=== PATIENT | male | born 1950 | race Caucasian/White ===

== ENCOUNTER 2018-03-26 05:58 | Day surgery (SDC) | payer MEDICARE, OTHER, SELFPAY ==
[2018-03-26 06:24] VITALS: BP 126/73; PULSE 65; RESP 16; TEMP 37.1; O2SAT 96; BMI 23.4
[2018-03-26] MEDS: Oxymetazoline 0.05% 1 SPRAY SPRAY.BTL 15 SPRAY (07:38)
--- NOTE | 2018-03-26 07:41 | PCM.OPRPT ---
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 He has suffered cholesteatoma in the contralateral side and given the progression of the retraction and risk for development of similar disease on this side T-type tympanostomy tube placement was offered in the hopes of arresting further retraction of the tympanic membrane into the middle ear space and he was eager to proceed. The risks, alternatives, potential benefits, and complications were discussed at length and any questions answered to the patient and/or caregiver's satisfaction. Witnessed informed consent was obtained in the office, and the patient and/or caregiver was agreeable to proceed. Procedure went as follows: The patient was identified in the preoperative holding and brought to the operating room, and placed under general anesthesia. When appropriate anesthesia was obtained, the operative microscope was brought into the field and on the left side the external auditory canal and tympanic membrane visualized. This is noted to be deeply retracted. A myringotomy was then placed in the anteroinferior portion the tympanic membrane and Russell T-tube placed followed by oxymetazoline drops. The patient was then returned to anesthesia, revived and returned to recovery without complication. Type of Anesthesia:: MAC Anesthesiologist: Bernardo Montes Special Medications: none Specimen's removed: none Estimated Blood Loss (mL): none Fluids Replaced: none - Complications none - Admit VTE Documentation VTE Present on Admission: No VTE Mechan Device Prophylaxis: None VTE Pharm Prophylaxis ordered?: No
[2018-03-26 07:44] VITALS: BP 126/73; BP 141/76; PULSE 75; RESP 14; TEMP 36.8; O2SAT 93
--- NOTE | 2018-03-26 07:48 | DCINST_ITS ---
Discharge Activity: Return to Normal Activity Call your doctor if your incision/area has: Foul Smelling Discharge Call your doctor if you observe: Fever of 101 or Higher, Uncontrolled pain Allergies/Adverse Reactions: Allergies No Known Allergies Allergy (Verified 03/19/18 09:44) Medications to take at Discharge Budesonide/Formoterol Fumarate [Symbicort 160-4.5 Mcg Inhaler] 6 gm IH BID 03/19/18 Primary Care Physician: Shay Gan MD [Primary Care Provider] - Test Results: Test results from this visit will be discussed in further detail at your follow- up appointment, if applicable. Please Follow Up With: Bernardo Francois MD When: 2 weeks
[2018-03-26 07:54] VITALS: BP 126/73; BP 151/76; PULSE 65; RESP 16; O2SAT 95
[2018-03-26 07:59] VITALS: BP 126/73; BP 144/71; PULSE 65; PULSE 74; RESP 16; TEMP 36.6; O2SAT 94
[2018-03-26 08:31] VITALS: BP 126/73
== END 2018-03-26 08:33 | disposition home or self-care (01) ==
LOC: SDC 05:59 → AC 06:01
PROVIDERS: Family Provider Family Medicine; PCP Family Medicine; Referring Provider Otolaryngology; Visit Provider Otolaryngology
PROC: (CPT 69436; principal; 2018-03-26 07:25)
DX: H73.822 Atrophic nonflaccid tympanic membrane, left ear (principal); I73.9 Peripheral vascular disease, unspecified; F17.200 Nicotine dependence, unspecified, uncomplicated; H91.93 Unspecified hearing loss, bilateral; H95.01 Recurrent cholesteatoma of postmastoidectomy cavity, right ear; H61.302 Acquired stenosis of left external ear canal, unspecified; H69.92 Unspecified Eustachian tube disorder, left ear
CPT/HCPCS: 69436; J7120; J2405

== ENCOUNTER 2018-06-04 07:26 | Day surgery (SDC) | payer MEDICARE, OTHER, SELFPAY ==
--- NOTE | 2018-06-04 07:35 | EKG12_ITS ---
Test Reason : PREOP Blood Pressure : / mmHG Vent. Rate : 073 BPM Atrial Rate : 073 BPM P-R Int : 158 ms QRS Dur : 080 ms QT Int : 382 ms P-R-T Axes : 068 -06 059 degrees QTc Int : 420 ms Sinus rhythm with Premature atrial complexes Nonspecific T wave abnormality Abnormal ECG Confirmed by GABRIELLA CORBIN, ANTONY ([id number]), editor magazine KRYSTEN BOBO ([id number]) on 06/07/2018 1:49:58 PM Referred By: Bernardo Francois Confirmed By:ANTONY QUIROZ MD
[2018-06-04 07:47] VITALS: BP 132/63; PULSE 70; RESP 14; TEMP 36.8; O2SAT 96; BMI 23.8
[2018-06-04 08:02] LABS: Anion Gap 6 (5-15); BUN 18 mg/dL (7-18); BUN/Creat Ratio 16.4 RATIO (10-20); Calcium,Total 8.6 mg/dL (8.5-10.1); Chloride 107 mmol/L (98-107); EST Glomerular Filtration Rate 71 mL/min (>60); Est Glom Filt Rate - Afr Amer 86 mL/min (>60); Estimated Creatinine Clearance 70.36 ml/min; Glucose 99 mg/dL (74-106); Sodium Level 140 mmol/L (136-145)
[2018-06-04] MEDS: Bacitracin 500 UNITS/GM PACKET (09:50)
--- NOTE | 2018-06-04 09:59 | PCM.OPRPT ---
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 He had a significant mixed hearing loss that failed to be restored with a hearing aid due to a vigorous bolus skin reaction to any contact with the hearing aid material which prohibited his use of this modality for denominational of his hearing. Given this along with significant collapse of the external auditory canal a bone anchored hearing device was offered in the hopes of better tolerance as this would prevent any skin contact with plastic material and he was eager to proceed. The risks, alternatives, potential benefits, and complications were discussed at length and any questions answered to the patient and/or caregiver's satisfaction. Witnessed informed consent was obtained in the office, and the patient and/or caregiver was agreeable to proceed. Procedure went as follows: The patient was identified in the preoperative holding after site marking the appropriate ear in accordance with the patient's history, office chart, and physical exam. The patient was then brought to the operating room and placed under general anesthesia and intubated. When appropriate anesthesia is obtained, the scalp was prepped and draped in usual sterile fashion. The abutment site was then marked 5.5 cm posterior to the external auditory meatus and injected with 1 mL of 1% lidocaine with 100,000 epinephrine. Using a 5 mm punch, the skin and subcutaneous tissues were incised and resected. The periosteum overlying the operative site was then removed sharply with an iris scissor and a periosteal elevator. The airplane pilot crop dusting drill hole was then created and palpated to ensure bone at the maximal depth of the hole and then finalized to 4 mm in size to allow for placement of the titanium abutment. The bony fragments were then suctioned and irrigated clear and the 4 x 12 mm abutment was then placed in accordance of the manufacture's directions. Xeroform gauze was then placed at the skin edge followed by the healing cap. The patient was then to return to anesthesia, was revived and extubated without complication having tolerated the procedure well. Type of Anesthesia:: General Anesthesiologist: Bernardo Montes Special Medications: none Specimen's removed: none Drains: none Estimated Blood Loss (mL): 0 mL Fluids Replaced: 500 mL Grafts/Implants Used: 12 mm PONTO abutment - Complications none - Admit VTE Documentation VTE Present on Admission: No VTE Mechan Device Prophylaxis: SCD's VTE Pharm Prophylaxis ordered?: No
--- NOTE | 2018-06-04 10:03 | OP.PCM_ITS ---
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 He had a significant mixed hearing loss that failed to be restored with a hearing aid due to a vigorous bolus skin reaction to any contact with the hearing aid material which prohibited his use of this modality for temple of his hearing. Given this along with significant collapse of the external auditory canal a bone anchored hearing device was offered in the hopes of better tolerance as this would prevent any sk in contact with plastic material and he was eager to proceed. The risks, alternatives, potential benefits, and complications were discussed at length and any questions answered to the patient and/or caregiver's satisfaction. Witnessed informed consent was obtained in the office, and the patient and/or caregiver was agreeable to proceed. Procedure went as follows: The patient was identified in the preoperative holding after site marking the appropriate ear in accordance with the patient's history, office chart, and physical exam. The patient was then brought to the operating room and placed under general anesthesia and intubated. When appropriate anesthesia is obtained, the scalp was prepped and draped in usual sterile fashion. The abutment site was then marked 5.5 cm posterior to the external auditory meatus and injected with 1 mL of 1% lidocaine with 100,000 epinephrine. Using a 5 mm punch, the skin and subcutaneous tissues were incised and resected. The periosteum overlying the operative site was then removed sharply with an iris scissor and a periosteal elevator. The maritime pilot drill hole was then created and palpated to ensure bone at the maximal depth of the hole and then finalized to 4 mm in size to allow for placement of the titanium abutment. The bony fragments were then suctioned and irrigated clear and the 4 x 12 mm abutment was then placed in accordance of the manufacture's directions. Xeroform gauze was then placed at the skin edge followed by the healing cap. The patient was then to return to anesthesia, was revived and extubated without complication having tolerated the procedure well. Type of Anesthesia:: General Anesthesiologist: Bernardo Montes Special Medications: none Specimen's removed: none Drains: none Estimated Blood Loss (mL): 0 mL Fluids Replaced: 500 mL Grafts/Implants Used: 12 mm PONTO abutment - Complications none - Admit VTE Documentation VTE Present on Admission: No VTE Mechan Device Prophylaxis: SCD's VTE Pharm Prophylaxis ordered?: No
--- NOTE | 2018-06-04 10:05 | DCINST_ITS ---
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 (Chronic) You will use the following diet at home:: No restrictions Your food should be the consistency of: Regular Discharge Activity: Return to Normal Activity Call your doctor if your incision/area has: Continuous Slow Oozing, Increased Redness Call your doctor if you observe: Fever of 101 or Higher, Uncontrolled pain Allergies/Adverse Reactions: Allergies No Known Allergies Allergy (Verified 05/28/18 08:08) Medications to take at Discharge RX: Budesonide/Formoterol Fumarate [Symbicort 160-4.5 Mcg Inhaler] 6 gm IH BID 03/19/18 Primary Care Physician: Shay Gan MD [Primary Care Provider] - Test Results: Test results from this visit will be discussed in further detail at your follow- up appointment, if applicable. Please Follow Up With: Bernardo Francois MD When: 2 weeks
[2018-06-04 10:18] VITALS: BP 132/63; BP 139/68; PULSE 84; RESP 18; TEMP 36.7; O2SAT 92
[2018-06-04 10:30] VITALS: BP 132/63; BP 141/73; PULSE 83; RESP 16; O2SAT 92
[2018-06-04 10:40] VITALS: BP 130/73; BP 132/63; PULSE 82; RESP 16; TEMP 36.6; O2SAT 93
[2018-06-04 11:15] VITALS: BP 122/65; BP 132/63; PULSE 72; RESP 18; TEMP 37.2; O2SAT 93
== END 2018-06-04 11:20 | disposition home or self-care (01) ==
LOC: SDC 07:26 → AC 07:27
PROVIDERS: Family Provider Family Medicine; PCP Family Medicine; Referring Provider Otolaryngology; Visit Provider Otolaryngology
PROC: (CPT 69710; principal; 2018-06-04 08:45)
DX: H90.6 Mixed conductive and sensorineural hearing loss, bilateral (principal); H61.302 Acquired stenosis of left external ear canal, unspecified; F17.200 Nicotine dependence, unspecified, uncomplicated
CPT/HCPCS: 20975; 36415; 80048; 93005; J7120; J2405